=== PATIENT | female | born 1950 | race Hispanic/Latino ===

== ENCOUNTER → 2017-07-08 | Day surgery (SDC) | payer OTHER ==
[~2017-07-08] VITALS: Ht 157.5 cm; Wt 56.2 kg
[~2017-07-08] MED LIST: ACETAMINOPHEN-1 EAC1 PO; ALBUTEROL2.5 MG/0.5 INH; ALBUTEROL2.5 MG/3 M INH; ALENDRONATE SOD70 M1 PO; AUGMENTIN 875-1 EACH PO; COMPLETE ALLERG25 MG PO; FOLIC ACID1 M1 PO; FOLIC ACID10 GM PO; FOSAMAX70 M1 PO; GEMFIBROZIL1 GM PO; GEMFIBROZIL600 MG PO; HEPARIN 2525000 UNI1 IV; LEVAQUIN250 M1 PO; LEVAQUIN500 M1 PO; LIPITOR80 MG PO; LOPID600 MG PO; LOPRESSOR 12.12.5 MG PO; MOTRIN 600 MG600 MG PO; NAPROXEN500 MG PO; NEURONTIN300 M1 PO; NEURONTIN300 MG PO; Nitro-Bid TOP; PERCOCET 325 MG1 TA2 PO; PRAVASTATIN SOD20 MG PO; PREDNISONE 10MG10 M1 PO; PREDNISONE PO; PREDNISONE5 M1 PO; PRINIVIL5 M1; PROAIR HFA0.09 MG/Ac INH; PROAIR HFA8.5 GM INH; QVAR8.7 G1 INH; TREXALL5 MG PO; TYLENOL #31 TAB PO; TYLENOL WITH C1 EACH PO
--- NOTE | 2017-07-08 10:35 | Operative Report ---
Operative/Inv Procedure Report Surgery Date: 07/08/17 Name of Procedure: Cataract extraction lens implantation right eye Pre-Operative Diagnosis: Age-related cataract right eye 20/60 vision Post-Operative Diagnosis: Same Estimated Blood Loss: none Surgeon/Retail Manager: Kaiser SOLIMAN,Carlos Jackson Anesthesia: local monitored anesthesi Complications: None Operative/Procedure Note Note: The patient was brought to the operating room standard monitoring equipment was attached the patient was prepped and draped in the usual fashion for intraocular surgery. A lid speculum was placed to retract the lids. The case was begun by making a temporal incision with a 2.4 mm keratome. The eye was stabilized with a Felder ring during this incision. 1 mL of non-preserved lidocaine was introduced into the anterior chamber to provide anesthesia. The anterior chamber was then filled and deepened with viscoelastic. A curvilinear capsulorrhexis was achieved using a 30-gauge needle and is a cystotome and capsulorrhexis was finished using a Utrata forceps. A second or paracentesis incision was made temporally with a 1 mm MVR blade. The lens was then hydrodissected with balanced salt solution and found to be rotatable. The lens was emulsified using phacoemulsification and a modified four-quadrant cracking technique. The residual cortical material was removed using automated irrigation and aspiration and as much of the anterior capsular rim was cleaned as well as possible. The posterior capsule was cleaned first with the automated machine on a low setting and then manually with a Leroy squeegee. The capsular bag was deepened with viscoelastic. The lens a Technis 1 25.0 Diopter placed into the bag under direct visualization and rotated so that the haptics were at 12 and 6:00. Viscoelastic was then removed from the eye by flushing it out and then by automated irrigation and aspiration. The eye was pressurized to a normal tone. 1/10 of a cc of vancomycin solution was introduced into the anterior chamber to provide antibiotic prophylaxis. The wounds were sealed by hydrating the stroma adjacent to them and the eye was left at a proper tone after the wounds were checked and found not to be leaking. The lid speculum was removed from the orbit. Antibiotic and steroid drops were placed on the eye and then the eye was shielded. Monitoring equipment was removed from the patient and the patient was removed from the operative suite to the holding area. The patient tolerated the procedure well and will be seen in the office tomorrow.
== END ==
LOC: STS 04:30
DX: H25.9 Unspecified age-related cataract (principal); I10 Essential (primary) hypertension; M19.90 Unspecified osteoarthritis, unspecified site
CPT/HCPCS: J2250; V2632